=== PATIENT | female | born 1995 | race American Indian/Alaskan Native ===

== ENCOUNTER 2017-01-24 19:53 | Emergency (ER) | payer OTHER ==
[2017-01-24 20:06] VITALS: RESP 18; TEMP 98
[2017-01-24 22:52] LABS: RBC URINE 2 /hpf (0-3); URINE BACTERIA FEW (<OCC); URINE BILIRUBIN NEGATIVE (NEGATIVE); URINE BLOOD NEGATIVE (NEGATIVE); URINE COLOR Yellow (YELLOW); URINE GLUCOSE (UA) NORMAL (Normal); URINE KETONE NEGATIVE (NEGATIVE); URINE LEUKOCYTE ESTERASE NEG Leu/uL (Negative); URINE PROTEIN NEGATIVE (NEGATIVE); URINE UROBILINOGEN NORMAL mg/dL (0.2-1.0); WBC URINE 1 /hpf (0-5)
--- NOTE | 2017-01-24 22:54 | C.PDOC ---
History Of Present Illness Patient presents to the ED with complaints of headache and vaginal bleeding. Patient reports she is 16 weeks and is . Patient denies fever, chills, nausea, or vomiting. Time Seen by Provider: 01/24/17 22:53 Chief Complaint (Nursing): Abdominal Pain History Per: Patient History/Exam Limitations: no limitations Onset/Duration Of Symptoms: Days (2 days ) Current Symptoms Are (Timing): Still Present Severity: Mild Pain Scale Rating Of: 4 Radiation Of Pain To:: None Associated Symptoms: denies: Fever, Chills, Nausea, Vomiting, Urinary Symptoms Exacerbating Factors: None Alleviating Factors: None Recent travel outside of the [place]: No Additional History Per: Family Abnormal Vaginal Bleeding: Yes Past Medical History Reviewed: Historical Data, Nursing Documentation, Vital Signs Vital Signs: Last Vital Signs Temp 98 F 01/24/17 20:02 Pulse 67 01/25/17 00:00 Resp 18 01/25/17 00:00 BP 120/81 01/25/17 00:00 Pulse Ox 100 01/25/17 00:00 - Medical History PMH: Asthma, HTN (during ) Family History: States: Unknown Family Hx - Social History Hx Alcohol Use: No Hx Substance Use: No - Immunization History Hx Tetanus Toxoid Vaccination: No Hx Influenza Vaccination: No Hx Pneumococcal Vaccination: No Review Of Systems Constitutional: Negative for: Fever, Chills Gastrointestinal: Negative for: Nausea, Vomiting, Abdominal Pain, Diarrhea Genitourinary: Positive for: Vaginal Bleeding. Negative for: Dysuria, Hematuria Neurological: Positive for: Headache. Negative for: Dizziness Physical Exam - Physical Exam Appears: Non-toxic, No Acute Distress Skin: Warm, Dry, No Rash Head: Atraumatic, Normacephalic, No Tenderness Eye(s): bilateral: Normal Inspection, PERRL, EOMI Oral Mucosa: Moist Neck: Supple Chest: Symmetrical, No Deformity Cardiovascular: Rhythm Regular, No Murmur Respiratory: No Rales, No Rhonchi, No Wheezing Gastrointestinal/Abdominal: Soft, No Tenderness, No Distention, No Guarding, No Rebound, Other (Abdomen is gravid; fundus is subxiophoid ) Back: Normal Inspection Extremity: Normal ROM, No Tenderness Extremity: Bilateral: Atraumatic Pulses: Left Dorsalis Pedis: Normal, Right Dorsalis Pedis: Normal Neurological/Psych: Oriented x3, Normal Speech, Normal Cognition Gait: Steady ED Course And Treatment - Laboratory Results Result Diagrams: 01/24/17 23:32 01/24/17 23:32 O2 Sat by Pulse Oximetry: 98 (RA) Pulse Ox Interpretation: Normal Progress Note: Blood work, labs, and Pelvis US were ordered. Reevaluation Time: 00:50 Reassessment Condition: Improved Disposition Counseled Patient/Family Regarding: Studies Performed, Diagnosis, Need For Followup - Disposition Referrals: [facility] [Outside] [facility] [Outside] Disposition: HOME/ ROUTINE Disposition Time: 22:54 Condition: FAIR Instructions: (ED) Forms: [employer] (Polish) - Clinical Impression Clinical Impression: , Headache - Scribe Statement The provider has reviewed the documentation as recorded by the Scribe Catrachita Robbins All medical record entries made by the Scribe were at my direction and personally dictated by me. I have reviewed the chart and agree that the record accurately reflects my personal performance of the history, physical exam, medical decision making, and the department course for this patient. I have also personally directed, reviewed, and agree with the discharge instructions and disposition.
[2017-01-24 23:47] LABS: ALB/GLOB RATIO 1.2 (1.0-2.1); ALKALINE PHOSPHATASE 55 U/L (38-126); ALT/SGPT 28 U/L (9-52); AST/SGOT 22 U/L (14-36); BASO # 0.1 K/uL (0.0-0.2); BASO % 1.2 % (0.0-2.0); BILIRUBIN,TOTAL 0.8 mg/dL (0.2-1.3); BLOOD UREA NITROGEN 9 mg/dL (7-17); CALCIUM 8.5 mg/dl (8.6-10.4); CARBON DIOXIDE 22 mmol/L (22-30); CHLORIDE 103 mmol/L (98-107); EOS # 0.6 K/uL (0.0-0.7); EOS % 6.5 % (0.0-4.0); GFR AFRICAN-AMERICAN > 60; GLUCOSE,RANDOM 76 mg/dL (65-105); HEMATOCRIT 35.5 % (34.0-47.0); LYMPH # 1.8 K/uL (1.0-4.3); LYMPH % 18.4 % (20.0-40.0); MEAN CELL VOLUME 87.2 fL (81.0-99.0); MEAN CORPUSCULAR HEMOGLOBIN 29.7 pg (27.0-31.0); MEAN CORPUSCULAR HGB CONC 34.1 g/dL (33.0-37.0); MEAN PLATELET VOLUME 7.9 fL (7.2-11.7); MONO # 0.8 K/uL (0.0-0.8); MONO % 7.8 % (0.0-10.0); NRBC % 0.1 % (0.0-2.0); POTASSIUM 3.8 mmol/L (3.6-5.2); RED CELL DISTRIBUTION WIDTH 13.5 % (11.5-14.5); SODIUM 134 mmol/L (132-148); TOTAL PROTEIN 6.6 g/dL (6.3-8.3); WHITE BLOOD COUNT 9.6 K/uL (4.8-10.8)
[2017-01-25 00:09] VITALS: BP 120/81
--- NOTE | 2017-01-25 00:26 | US ---
EXAM: US Uterus, Limited CLINICAL HISTORY: 21 years old, female; Signs and symptoms; Lmp or gestational age (in weeks): 16weeks; Other: Vag bleed; ; Additional info: Vag bleed, 16 weeks TECHNIQUE: Real-time ultrasound of the maternal uterus (limited) with image documentation. COMPARISON: PELVIS/TRANSVAG US 2015-06-04 19:39 FINDINGS: There is a [single] intrauterine in breech position. There is regular cardiac activity with heart rate of 148 bpm. The placenta is anterior without evidence for previa, although evaluation is limited on the submitted images. Limited evaluation of the cervix on the submitted images. Ultrasound calibers measured 4.67 cm and designated this measurement as the cervix, and describe it as closed. Amniotic fluid index is grossly within normal limits (index not obtained). motion is described. BIOMETRIC GROWTH PARAMETERS: BPD (Hadlock) 12.1 cm. HC (Hadlock) 13.9 cm corresponding to a gestational age of 17 weeks, 2 days. AC(Hadlock) 10.1 cm corresponding to a gestational age of 16 weeks, 1 day. FL(Hadlock) 2.2 cm corresponding to a gestational age of 16 weeks, 5 days. Estimated gestational age by ultrasound: 16 weeks and 5 days for an estimated date of delivery of 07/06/2017. Estimated weight: 153.5grams ANATOMY: Following structures visualized and unremarkable in appearance: The cord inserts on the midline of the abdomen. The skull is normal in shape. Limited anatomical evaluation secondary to the emergent nature of the examination. IMPRESSION: Ultrasound biometric growth parameters correspond to gestational age of 16 weeks and 5 days. Limited evaluation of the cervix and the entirety of the placenta on the submitted images, as detailed above. Short term followup is recommended.
[2017-01-25 01:03] VITALS: PULSE 74; O2SAT 100
== END 2017-01-25 01:13 | disposition home or self-care (01) ==
LOC: SUPCPDRO 19:53 → C.ER 19:53
DX: O26.892 Other specified pregnancy related conditions, second trimester (principal); R51 Headache; Z3A.16 16 weeks gestation of pregnancy

== ENCOUNTER 2017-03-19 20:13 | Emergency (ER) | payer OTHER ==
--- NOTE | 2017-03-19 20:42 | OBHP ---
Datetime: 03/19/2017 20:09 IP Adm Impression: , intrauterine IP Chief Complaint Other: cough Admit Comment, IP Provider: 21 y/o @ 23.3 wks LMP PATRICK 07/13/2017 c/o cold like sympoamtc x 1 days, headache mild, with no blurry vision, with cough productive with clear sputum, no nausea, vomit ing x 3, non bloody non bilious with muscle aches. Pt dneis any fever, chills, cp, sob. Pt denies an y abodminal pain, lof, vb, ctx +FM. Pt dneis any bowel or bladde complaints. pt declined flu vaccine, pt reports multiple sick contact. 118/65 temp 99 OB: 1 [employer] CxS 36 weeks boy (?gestational htn/ preeclampis? unclear historian), [employer]: pt dneis any hx of anborma pap, fibroids, ovarian cyst. Hx of cyhymaxi and gonorrhea 2013, Ag e of menarch 17 x 7 days duratoin irregular PMH: Asthma (no hosptilzation, no intuations) PSH: CxS (gestational Htn?) SHX: + tobacco 1PPDx MEDS: Alubeterol (last use prior to arrival), PNV A/P 21 y/o P1 @23.3 wks GA with possible upper respiraotry infection cannot rule out bronchits, vs influenze vs pnenumonia, with well being -obstetrically cleared -return to ER for medical evalaution by wheelchair -imporance of treatmetn dicusssed with pt and above possible differentials and care d/w p atient. Pelvic Type - PN: Adequate Extremities - PN: Normal Abdomen - PN: Normal Back - PN: Normal Breast - PN: Not Done Lungs - PN: Normal Heart - PN: Normal Thyroid - PN: Not Done Neurologic - PN: Normal HEENT - PN: Normal General - PN: Normal FHR - Baseline A Provider: 150 Contraction Comments Provider: none Comments, ACOG Physical Exam: GEN: NAD, AAO x 3 RESP: ctab/l, no rales, rhonch, wheezing appreciated CVS: RRR, +S1/S2 ABD: soft, NT, ND, no guarding no rebound tendernss BACK: no CVA b/l VE: pt declined EXT; trace edema, negative bindu's sign Gestation - Est Wks by US: 23.3 Vital Signs Provider: Reviewed IP Chief Complaint: Other Genitourinary Exam: Normal DTRs - PN: Normal
--- NOTE | 2017-03-19 20:44 | OBDCSUM ---
Datetime: 03/19/2017 20:31 Discharged to, Provider: Other Follow up at, Provider: ER and private OBGYN Disch Instr Diet: Regular Discharge Time: 03/19/2017 20:38 Follow up in weeks, Provider: Now and as per ER reocmmendations Disch Referrals: None Discharge Comment, Provider: Pt discharge to ER by wheelchair for medical evalaution precautions given pt advised if fever, not feelign well or unimproved, woresng symtplms return to ER. Pt advsied inf luenza can be deadly in , therefore improtance of follow up discussed iwth patient Discharge Diagnosis Prov Other: upper respiratory infection, sent ot Er for evluation adn diagnosis
--- NOTE | 2017-03-19 22:08 | C.PDOC ---
History Of Present Illness PATIENT WAS BROUGHT TO ED FROM OB FLOOR AT 22:05 Time Seen by Provider: 03/19/17 22:07 Past Medical History - Medical History PMH: Asthma, HTN (during ) Family History: States: Unknown Family Hx - Social History Hx Alcohol Use: No Hx Substance Use: No - Immunization History Hx Tetanus Toxoid Vaccination: No Hx Influenza Vaccination: No Hx Pneumococcal Vaccination: No Disposition - Disposition Referrals: Non [facility] Provider, [Primary Care Provider] - Condition: GOOD
== END 2017-03-19 22:09 | disposition still patient (30) ==
LOC: C.EROB 20:13 → C.ER 20:13 → C.EROB 21:17 → C.ER 22:09
DX: O26.892 Other specified pregnancy related conditions, second trimester (principal); Z3A.23 23 weeks gestation of pregnancy

== ENCOUNTER 2017-03-19 22:12 | Emergency (ER) | payer OTHER ==
[2017-03-19 22:20] VITALS: RESP 20; O2SAT 98
[2017-03-19] MEDS ORDERED: Sodium Chloride 0.9% 1,000 ML IV ONE (22:47)
[2017-03-19] MEDS ORDERED: Albuterol 0.083% Inhal Sol (2.5 mg/3 mL) UD IH STA (22:49)
--- NOTE | 2017-03-19 22:51 | C.PDOC ---
History Of Present Illness Pt arrived to ED after OB evaluation at 22:05. Pt was OB cleared. 21 female , 23.3 wks , w/ PMHx of asthma, come in for evaluation of cold sx for past 3 days associated with bodyaches, chills, runny nose, productive cough. Pt sts, since today AM developed some retrosternal pain with cough. Pt admits, similar sx in family members who was tested (+) Influenza. Otherwise, pt denies high fever, chills, drooling, ear discharges, trismus, headache, dizziness, neck pain, CP, SOB, cough, wheezing, abd. pain, V/D, back pain, UTI sx, rash. Ambulate to Ed for evaluation, not in any apparent distress Time Seen by Provider: 03/19/17 22:23 Chief Complaint (Nursing): Chest Pain History Per: Patient Past Medical History Reviewed: Historical Data, Nursing Documentation, Vital Signs Vital Signs: Last Vital Signs Temp 99.2 F 03/20/17 01:34 Pulse 88 03/20/17 01:34 Resp 20 03/20/17 01:34 BP 138/86 03/20/17 01:34 Pulse Ox 98 03/20/17 01:34 - Medical History PMH: Asthma, HTN (during ) Family History: States: Unknown Family Hx - Social History Hx Alcohol Use: No Hx Substance Use: No - Immunization History Hx Tetanus Toxoid Vaccination: No Hx Influenza Vaccination: No Hx Pneumococcal Vaccination: No Review Of Systems Except As Marked, All Systems Reviewed And Found Negative. Constitutional: Positive for: Fever, Malaise ENT: Positive for: Nose Discharge, Nose Congestion, Throat Pain. Negative for: Ear Discharge Cardiovascular: Positive for: Chest Pain. Negative for: Palpitations, Edema, Light Headedness Respiratory: Positive for: Cough, Sputum. Negative for: Shortness of Breath, SOB with Excertion, Pleuritic Pain, Wheezing Gastrointestinal: Negative for: Nausea, Vomiting, Abdominal Pain, Diarrhea Genitourinary: Negative for: Vaginal Bleeding Skin: Negative for: Rash Neurological: Negative for: Weakness, Numbness, Altered Mental Status, Dizziness Physical Exam - Physical Exam Appears: Well, Non-toxic, No Acute Distress Skin: Normal Color, Warm, Dry, No Rash Head: Normacephalic Eye(s): bilateral: PERRL Ear(s): Bilateral: Normal Nose: No Flaring, Discharge (scant clear rhinorrhea B/L) Oral Mucosa: Moist, No Drooling Throat: No Erythema (mild B/L), No Exudate, No Drooling Neck: Trachea Midline, Supple, Other ((-) meningeal sign) Cardiovascular: Rhythm Regular Respiratory: No Decreased Breath Sounds, No Accessory Muscle Use, No Rales, No Rhonchi, No Stridor, Wheezing (scattered bibasilar) Gastrointestinal/Abdominal: Soft, No Tenderness, No Distention, No Guarding, Other (Gravid) Back: No CVA Tenderness Extremity: Normal ROM, No Pedal Edema, No Deformity, No Swelling Neurological/Psych: Oriented x3, Normal Speech ED Course And Treatment - Laboratory Results Result Diagrams: 03/19/17 23:15 03/19/17 23:15 Lab Interpretation: Normal Urine POC: Positive ECG: Interpreted By Me, Viewed By Me (and ED attending) ECG Rhythm: Sinus Rhythm (SR@103/MIN, NAD, T WAVE INVERSION IN II, III, AVF, (- ) ACUTE ST-T CHANGES.) ECG Interpretation: Normal O2 Sat by Pulse Oximetry: 98 Pulse Ox Interpretation: Normal Progress Note: On re-evaluation, pt is afebrile, hemodynamicaly stable. Non- toxic. Tolerate po well in ED. AMbulatory in ED with stable gait. PUlseOx 98% RA. Neck: SUpple, (-) meningeal sign. ENT: No acute findings. neck: SUpple, ( -) meningeal sign. LUngs: CTA B/L, BS equal B/L. Abd: benign. Blood work review and appears without acute abnormalities. EKG review. case dsicussed with ED attending, pt is stable for discharge and outpt f/u now. Results review and discussed with patient. Pt has clinical findings c/w Inflienza- like illness. Pt advised. ref. to F/u with PMD and OB in 2-3 days for re- eavl. return to ED at any time if any new changes. Pt understand and agrees with discharges. Disposition Counseled Patient/Family Regarding: Studies Performed, Diagnosis, Need For Followup, Rx Given - Disposition Referrals: Rich Ricardo MD [Staff Provider] - Disposition: HOME/ ROUTINE Disposition Time: 01:02 Condition: STABLE Additional Instructions: ENCOURAGE FLUIDS TAKE MEDICATION PRESCRIBED FOLLOW UP WITH PMD IN 2-3 DAYS FOR RE-EVALUATION. RETURN TO ED IF ANY WORSENING OR NEW CHANGES. Prescriptions: Albuterol HFA [Ventolin HFA 90 mcg/actuation (8 g)] 1 puff IH Q6 #1 inhaler Azithromycin [Zithromax Tri-Ke] 500 mg PO DAILY #3 tab Prednisone [Deltasone] 40 mg PO DAILY #6 tablet Instructions: Acute Bronchitis (ED) Forms: [email or web address] (Sami), Work Excuse - Clinical Impression Clinical Impression: Bronchitis,
[2017-03-19 23:18] LABS: HEMOGLOBIN 12.3 g/dL (11.0-16.0); LYMPH # 0.8 K/uL (1.0-4.3); LYMPH % 13.1 % (20.0-40.0); WHITE BLOOD COUNT 6.1 K/uL (4.8-10.8)
[2017-03-19] MEDS ORDERED: Albuterol 0.083% Inhal Sol (2.5 mg/3 mL) UD ONE (23:19)
[2017-03-19] MEDS ORDERED: MethylPREDNISolone 40 mg Vial ONE (23:19)
[2017-03-19] MEDS ORDERED: Sodium Chloride 0.9% 1,000 ML ONE (23:19)
[2017-03-19 23:24] LABS: BASO % 0.4 % (0.0-2.0); EOS % 0.3 % (0.0-4.0); MEAN CELL VOLUME 86.4 fL (81.0-99.0); MEAN CORPUSCULAR HEMOGLOBIN 30.3 pg (27.0-31.0); MEAN CORPUSCULAR HGB CONC 35.1 g/dL (33.0-37.0); MONO # 0.9 K/uL (0.0-0.8); MONO % 15.2 % (0.0-10.0); NEUT # 4.3 K/uL (1.8-7.0); NRBC % 0.1 % (0.0-2.0); RBC 4.07 Mil/uL (3.80-5.20); RED CELL DISTRIBUTION WIDTH 12.9 % (11.5-14.5)
[2017-03-19 23:32] LABS: GFR AFRICAN-AMERICAN > 60; GFR NON-AFRICAN AMERICAN > 60
[2017-03-19 23:34] LABS: BLOOD UREA NITROGEN 4 mg/dL (7-17)
[2017-03-19 23:56] LABS: SQUAMOUS EPITHIAL 2 /hpf (0-5); URINE BACTERIA RARE (<OCC); URINE BILIRUBIN NEGATIVE (NEGATIVE); URINE BLOOD NEGATIVE (NEGATIVE); URINE CLARITY Clear (Clear); URINE COLOR Yellow (YELLOW); URINE GLUCOSE (UA) NORMAL (Normal); URINE LEUKOCYTE ESTERASE NEG Leu/uL (Negative); URINE NITRATE NEGATIVE (NEGATIVE); URINE PROTEIN NEGATIVE (NEGATIVE); URINE UROBILINOGEN NORMAL mg/dL (0.2-1.0)
[2017-03-19 23:57] LABS: HCG,QUALITATIVE URINE POSITIVE (NEGATIVE)
[2017-03-20] MEDS ORDERED: Promethazine/Cod 6.25mg-10mg/5ml Syr UD PO STA (00:43)
[2017-03-20] MEDS ORDERED: Promethazine/Cod 6.25mg-10mg/5ml Syr UD ONE ×2 (00:50→01:39)
[2017-03-20 01:40] VITALS: BP 138/86; PULSE 88; TEMP 99.2
--- NOTE | 2017-03-21 23:29 | CARD ---
APPROVED REPORT EKG Measurement Heart [id number] <Conclusion> Sinus tachycardia T wave abnormality, consider inferior ischemia Abnormal ECG
== END 2017-03-20 01:34 | disposition home or self-care (01) ==
LOC: C.ER 22:12
DX: O26.892 Other specified pregnancy related conditions, second trimester (principal); J40 Bronchitis, not specified as acute or chronic; Z3A.23 23 weeks gestation of pregnancy
CPT/HCPCS: 80048; 81001; 84703; 85025; 87040; 87804; 93005; 96374; 99284; J2930; J7040

== ENCOUNTER 2018-07-22 12:34 | Emergency (ER) | payer OTHER ==
[2018-07-22 12:39] VITALS: RESP 18
[2018-07-22 12:40] VITALS: BMI 34.5
--- NOTE | 2018-07-22 13:19 | C.PDOC ---
History Of Present Illness 23 y.o. female presents with new onset RLQ pain for 2 days. Pt notes the pain is localized, waxing and waining. Denies past medical surgical hx. LMP 3 days. Denies fever, chills, nausea, vomiting, and any other associated symptoms. NEW ONSET RLQ PAIN SINCE 2 DAYS. LOCALIZED WAX WANE. PSH NEG. NO FEVER, NV. LMP 3 DAYS EXAM NONTOXIC USING CELL PHONE WO DIFF ABD RLQ TEND MOD SOFT NO R/G REMAINDER NEG MDM RLQ ABD PAIN NEG PREG R/O APPY Time Seen by Provider: 07/22/18 12:42 Chief Complaint (Nursing): Abdominal Pain History Per: Patient History/Exam Limitations: no limitations Onset/Duration Of Symptoms: Days (x2) Current Symptoms Are (Timing): Still Present Location Of Pain/Discomfort: RLQ Radiation Of Pain To:: None Associated Symptoms: denies: Fever, Chills Recent travel outside of the [place]: No Past Medical History Reviewed: Historical Data, Nursing Documentation, Vital Signs Vital Signs: Last Vital Signs Temp 98.0 F 07/22/18 12:38 Pulse 81 07/22/18 12:38 Resp 18 07/22/18 12:38 BP 133/94 H 07/22/18 12:38 Pulse Ox 97 07/22/18 12:38 Primary Care Provider: Donavan Gomez - Medical History PMH: Asthma, HTN (during ) Family History: States: Unknown Family Hx - Social History Hx Alcohol Use: Yes Hx Substance Use: No - Immunization History Hx Tetanus Toxoid Vaccination: No Hx Influenza Vaccination: No Hx Pneumococcal Vaccination: No Review Of Systems Except As Marked, All Systems Reviewed And Found Negative. Constitutional: Negative for: Fever, Chills Gastrointestinal: Positive for: Abdominal Pain (RLQ.). Negative for: Nausea, Vomiting Physical Exam - Physical Exam Appears: Non-toxic, No Acute Distress, Other (using cell phone without d ifficulty. ) Skin: Warm, Dry Head: Atraumatic, Normacephalic Eye(s): bilateral: Normal Inspection Oral Mucosa: Moist Neck: Normal ROM, Supple Cardiovascular: Rhythm Regular, No Murmur Respiratory: Normal Breath Sounds, No Rales, No Rhonchi, No Wheezing, No Other (NARD.) Gastrointestinal/Abdominal: Soft, Tenderness (to the RLQ. moderate. ), No Guarding, No Rebound Extremity: Bilateral: Atraumatic, Normal Color And Temperature, Normal ROM Neurological/Psych: Oriented x3, Normal Speech, Normal Cognition ED Course And Treatment - Laboratory Results Result Diagrams: 07/22/18 13:47 07/22/18 13:47 O2 Sat by Pulse Oximetry: 97 (RA) Pulse Ox Interpretation: Normal - CT Scan/US A/P Other Rad Studies (CT/US): Read By Radiologist (D/W DR MORALES: NEG APPY. ?RUPTURED R OVARIAN CYST) Progress - Re-Evaluation Re-evaluation Note: 07/22/18 16:27 APPEARS COMFORTABLE NAD NO S/S SURG AB - Data Reviewed Data Reviewed: Lab, Diagnostic imaging Medical Decision Making Medical Decision Making: Initial plan: -CT ABD & Pelvis IV Contrast only -ABD limited US -Blood sent. -Urinalysis Disposition Counseled Patient/Family Regarding: Studies Performed, Diagnosis, Need For Followup, Rx Given - Disposition Referrals: YOUR,PMD [Other] Disposition: HOME/ ROUTINE Disposition Time: 16:27 Condition: GOOD Prescriptions: Ibuprofen [Motrin] 600 mg PO Q6 #30 tab Instructions: Ovarian Cyst (DC), Acute Abdomen (Belly Pain), Adult (DC) Forms: [employer] (Sol[place] Islander) - Clinical Impression Clinical Impression: Abdominal pain - Scribe Statement The provider has reviewed the documentation as recorded by the Scribe (Ethel Flynn) Provider Attestation: All medical record entries made by the Scribe were at my direction and personally dictated by me. I have reviewed the chart and agree that the record accurately reflects my personal performance of the history, physical exam, medical decision making, and the department course for this patient. I have also personally directed, reviewed, and agree with the discharge instructions and disposition.
[2018-07-22 13:22] LABS: SQUAMOUS EPITHIAL 4 /hpf (0-5); URINE BILIRUBIN NEGATIVE (NEGATIVE); URINE BLOOD NEGATIVE (NEGATIVE); URINE CLARITY Clear (Clear); URINE COLOR Straw (YELLOW); URINE GLUCOSE (UA) NORMAL (Normal); URINE LEUKOCYTE ESTERASE NEG Leu/uL (Negative); URINE PROTEIN NEGATIVE (NEGATIVE); URINE UROBILINOGEN NORMAL mg/dL (0.2-1.0)
[2018-07-22 13:54] LABS: BASO # 0.1 K/uL (0.0-0.2); EOS # 0.8 K/uL (0.0-0.7); EOS % 13.4 % (0.0-4.0); HEMOGLOBIN 12.7 g/dL (11.0-16.0); LYMPH # 1.7 K/uL (1.0-4.3); MEAN CORPUSCULAR HEMOGLOBIN 29.4 pg (27.0-31.0); MEAN PLATELET VOLUME 8.2 fL (7.2-11.7); MONO # 0.4 K/uL (0.0-0.8); MONO % 6.7 % (0.0-10.0); NEUT # 2.7 K/uL (1.8-7.0); NEUT % 47.9 % (50.0-75.0); NRBC % 0.1 % (0.0-2.0); RBC 4.32 Mil/uL (3.80-5.20); RED CELL DISTRIBUTION WIDTH 14.7 % (11.5-14.5); WHITE BLOOD COUNT 5.6 K/uL (4.8-10.8)
[2018-07-22 14:05] LABS: ALB/GLOB RATIO 1.4 (1.0-2.1); ALT/SGPT 24 U/L (9-52); AST/SGOT 21 U/L (14-36); BLOOD UREA NITROGEN 10 mg/dL (7-17); CALCIUM 8.9 mg/dl (8.6-10.4); GFR NON-AFRICAN AMERICAN > 60; LIPASE 33 U/L (23-300)
[2018-07-22] MEDS ORDERED: Iodixanol 320 MG/ML 100 ML BOTTLE IV ONE (15:24)
--- NOTE | 2018-07-22 16:30 | CT ---
Date of service: 07/22/2018 PROCEDURE: CT Abdomen and Pelvis with contrast HISTORY: RLQ PAIN COMPARISON: None. TECHNIQUE: Contrast dose: 100 mL of Visipaque 320 intravenously. Axial and reformatted coronal and sagittal CT images of the abdomen and pelvis were obtained after IV contrast administration. Radiation dose: Total exam DLP = 1013.22 mGy-cm. This CT exam was performed using one or more of the following dose reduction techniques: Automated exposure control, adjustment of the mA and/or kV according to patient size, and/or use of iterative reconstruction technique. FINDINGS: LOWER THORAX: Unremarkable. LIVER: Unremarkable. No gross lesion or ductal dilatation. GALLBLADDER AND BILE DUCTS: Unremarkable. PANCREAS: Unremarkable. No gross lesion or ductal dilatation. SPLEEN: Unremarkable. ADRENALS: Unremarkable. No mass. KIDNEYS AND URETERS: Unremarkable. No hydronephrosis. No solid mass. VASCULATURE: Unremarkable. No aortic aneurysm. No aortic atherosclerotic calcification or mural plaque present. BOWEL: Unremarkable. No obstruction. No gross mural thickening. APPENDIX: There is no CT evidence of appendicitis. PERITONEUM: Unremarkable. No free fluid. No free air. LYMPH NODES: Prominent mesenteric lymph nodes at the right lower abdomen are noted. BLADDER: Unremarkable. REPRODUCTIVE: Unremarkable. BONES: No acute fracture. OTHER FINDINGS: There is a subcutaneous paraumbilical mildly enhancing nodule measures 12.7 millimeter best seen on image 46 series 2 of uncertain etiology. There is fat containing paraumbilical hernia noted. IMPRESSION: No CT evidence of appendicitis. Mildly enlarged mesenteric lymph nodes at the right lower abdomen may represent mesenteric adenitis.
[2018-07-22 16:36] VITALS: BP 118/87; PULSE 78; TEMP 98.7; O2SAT 98
== END 2018-07-22 16:35 | disposition home or self-care (01) ==
LOC: C.ER 12:34
DX: R10.31 Right lower quadrant pain (principal)
CPT/HCPCS: 74177; 80053; 81001; 81025; 83690; 85025; 99284; Q9967